=== PATIENT | male | born 1985 | race Two or more races ===

== ENCOUNTER 2021-09-17 07:32 | Emergency (ER) | payer BC, SELFPAY ==
[2021-09-17 07:35] VITALS: BP 124/85; PULSE 95; RESP 16; TEMP 36.7; O2SAT 97; BMI 25.0
[2021-09-17 07:46] LABS: MANUAL DIFF FLAG NO
[2021-09-17 07:51] LABS: Basophils Percent Auto 0.3 % (0-2); Eosinophils Percent Auto 0.3 % (0-4); Hematocrit 44.5 % (42.0-52.0); Imm Gran Abs Auto 0.01 X10*3/uL (0.00-0.03); Imm Gran Pct Auto 0.2 % (0.0-0.4); Lymphocytes Absolute Auto 0.3 X10*3/uL (1.2-4.9); Lymphocytes Percent Auto 4.5 % (20-40); Mean Corpuscular HGB Conc 33.7 g/dl (31.0-36.0); Mean Corpuscular Hemoglobin 28.4 pg (27.0-33.0); Mean Corpuscular Volume 84.3 fL (80.0-98.0); Mean Platelet Volume 9.3 fL (9.4-12.4); Monocytes Absolute Auto 0.4 X10*3/uL (0.1-1.2); Monocytes Percent Auto 6.1 % (2-11); Neutrophils Absolute Auto 5.4 x10*3/uL (2.0-8.3); Neutrophils Percent Auto 88.6 % (45-73); Platelet Count 185 X10*3/uL (160-400); Red Blood Count 5.28 X10*6/uL (4.60-5.80); White Blood Count 6.1 X10*3/uL (4.8-10.8)
[2021-09-17 07:56] VITALS: BP 120/84; PULSE 92; RESP 20; TEMP 36.7; O2SAT 97
[2021-09-17 08:00] LABS: COVID-19 Test Negative (Negative); IDNOW Serial# 16C4AD1C
[2021-09-17 08:02] LABS: Alanine Aminotransferase 17 U/L (0-40); Albumin Level 4.7 g/dL (3.5-5.0); Alkaline Phosphatase 51 U/L (39-117); Anion Gap 14 (12-20); Aspartate Amino Transferase 20 U/L (5-37); Bilirubin Total 2.8 mg/dL (0.0-1.0); Blood Urea Nitrogen 12 mg/dL (9-16); Calcium 9.7 mg/dL (8.4-10.2); Carbon Dioxide 24 mmol/L (22-29); Chloride 104 mmol/L (96-108); Estimated Glomerular Filt Rate > 60; Glucose Random 110 mg/dL (60-115); Potassium 4.2 mmol/L (3.3-5.1); Sodium 138 mmol/L (135-145); Total Protein 7.5 g/dL (6.5-8.0)
--- NOTE | 2021-09-17 08:07 | PC.NURSE ---
pt with abdominal cramping, had raw fish last night. History of abdominal pain and has not followed up with GI doctor. History of opiate abuse, did take 3 Percocets a couple of days ago ( not perscribed). pt on Suboxone daily, did not take today as he becomes nauseous while taking.
--- NOTE | 2021-09-17 08:52 | ED_ITS ---
HPI - Nausea/Vomiting/Diarrhea General Chief complaint: Nausea/Vomiting/Diarrhea Stated complaint: Fever/Nausea Time Seen by Provider: 09/17/21 08:52 Source: patient Mode of arrival: ambulatory History of Present Illness HPI Narrative: 36-year-old male with over a year of intermittent epigastric discomfort does smoke wheeze but has switched to edibles and states that his epigastric pain has come back proximally 2 days ago, he feels nauseous but denies fever, chills and states he has had some diarrhea but otherwise denies shortness of breath/chest pain/palpitations. Patient denies any family history of IBD or stomach cancers. Related Data Previous Rx's Medication Instructions Recorded omeprazole 40 mg capsule,delayed 40 mg PO DAILY 30 Days #30 cap 09/17/21 release Allergies Allergy/AdvReac Type Severity Reaction Status Date / Time Unable to Assess Allergy Verified 09/17/21 09:05 Review of Systems Review of Systems: Pertinent positives and negatives as stated in HPI 10 point review of systems is otherwise negative. PMFSH Past Medical History Source: nursing notes reviewed Social History Social History Patient Tobacco Use Status: Never used Tobacco Substance Use Type: Opiates and Prescription Drugs Substance Use Frequency: Recent Binge Last Used Substance: Days (ago) Any prior treatment program specific to substance use: No Advance Directives: No Advance Directives Information Provided: Yes Physical Exam Vital Signs: Vital Signs: Last Vital Signs Temp 98.0 F 09/17/21 07:56 Pulse 92 09/17/21 07:56 Resp 20 09/17/21 07:56 BP 120/84 09/17/21 07:56 Pulse Ox 97 09/17/21 07:56 BMI result Body Mass Index 25.0 VITAL SIGNS: Reviewed. GENERAL: Well developed, well nourished, in no acute distress. HEAD: Normocephalic/atraumatic EYES: PERRLA, EOMI EARS: Ext canals without abnormality OROPHARYNX: no oral lesions noted, posterior pharynx clear LUNGS: Normal breath sounds. No adventitious sounds or accessory muscle use. SpO2<97> CARDIOVASCULAR: Regular rate and rhythm without noted murmurs ABDOMEN: Soft, epigastric discomfort,, non-distended with bowel sounds. MUSCULOSKELETAL: No tenderness, deformities, or effusions noted on gross in spection. EXTREMITIES: No cyanosis, clubbing or edema. SKIN: Inspection of the skin reveals no rashes NEUROLOGIC: Alert and oriented x 4. Strength and sensation to light touch were grossly intact x 4. Course Course Course Narrative: 36-year-old male with history and clinical presentation consistent with likely dyspepsia or possible reaction with THC in the gummies and we that he has been smoking. I have reviewed all investigations and there are no acute findings to better explain patient's presentation. Patient is not febrile and is otherwise hemodynamically stable. Patient received it GI cocktail and will be discharged home in stable condition with remaining course of 30 days of omeprazole instructions follow-up with his primary care provider for possible referral to see GI. MDM - Nausea/Vomiting/Diarrhea Lab Data Result diagrams: 09/17/21 07:41 09/17/21 07:41 Labs: Lab Results 09/17/21 09/17/21 09/17/21 Range/Units 07:40 07:41 07:41 WBC 6.1 (4.8-10.8) X10*3/uL RBC 5.28 (4.60-5.80) X10*6/uL Hgb 15.0 (14.0-18.0) g/dl Hct 44.5 (42.0-52.0) % MCV 84.3 (80.0-98.0) fL MCH 28.4 (27.0-33.0) pg MCHC 33.7 (31.0-36.0) g/dl RDW 12.0 (11.0-16.0) % Plt Count 185 (160-400) X10*3/uL MPV 9.3 L (9.4-12.4) fL Immature Gran % (Auto) 0.2 (0.0-0.4) % Neut % (Auto) 88.6 H (45-73) % Lymph % (Auto) 4.5 L (20-40) % [place] % (Auto) 6.1 (2-11) % Eos % (Auto) 0.3 (0-4) % Baso % (Auto) 0.3 (0-2) % Lymph # (Auto) 0.3 L (1.2-4.9) X10*3/uL [place] # (Auto) 0.4 (0.1-1.2) X10*3/uL Eos # (Auto) 0.0 (0.0-0.4) X10*3/uL Baso # (Auto) 0.0 (0.0-0.2) X10*3/uL Abs Immat Gran (auto) 0.01 (0.00-0.03) X10*3/uL Absolute Neuts (auto) 5.4 (2.0-8.3) x10*3/uL Absolute Nucleated RBC 0.000 (0.0-0.012) X10*3/uL Nucleated RBC % (auto) 0.0 (0.0-0.2) /100WBC Sodium 138 (135-145) mmol/L Potassium 4.2 (3.3-5.1) mmol/L Chloride 104 (96-108) mmol/L Carbon Dioxide 24 (22-29) mmol/L Anion Gap 14 (12-20) BUN 12 (9-16) mg/dL Creatinine 1.01 (0.5-1.4) mg/dL Estim Creat Clear Calc 112.0 Estimated GFR > 60 Random Glucose 110 (60-115) mg/dL Calcium 9.7 (8.4-10.2) mg/dL Total Bilirubin 2.8 H (0.0-1.0) mg/dL AST 20 (5-37) U/L ALT 17 (0-40) U/L Alkaline Phosphatase 51 (39-117) U/L Total Protein 7.5 (6.5-8.0) g/dL Albumin 4.7 (3.5-5.0) g/dL Lipase 20 (8-78) U/L COVID-19 ([facility]AMON) Negative (Negative) COVID-19 Clin Com See Note Discharge Plan Discharge Clinical Impression: Dyspepsia, Gastroesophageal reflux disease Patient Disposition: Home, Self-Care Instructions: Diet for Stomach Ulcers and Gastritis (ED), Gastroesophageal Reflux Disease (ED), Indigestion (ED) Additional Instructions: 1. Take medication you have been prescribed as directed. 2. Follow-up with your primary care provider and discuss possible referral to GI. Return to the ER for worsening symptoms. Prescriptions: New omeprazole 40 mg capsule,delayed release(DR/EC) 40 mg PO DAILY 30 Days Qty: 30 0RF Referrals: Lorna Valdez PA [Primary Care Provider] -
[2021-09-17 09:30] LABS: Lipase 20 U/L (8-78)
[2021-09-17] MEDS: Lidocaine HCl Viscous 2 % 15 ML SOLUTION 10 ML MUCOUS MEM (09:50)
[2021-09-17] MEDS: Ondansetron ODT 4 MG TAB.RAPDIS TRANSLINGU (09:50)
== END 2021-09-17 10:02 | disposition home or self-care (01) ==
PROVIDERS: Emergency Provider Student in an Organized Health Care Education/Training Program; PCP Physician Assistant
DX: R10.13 Epigastric pain (principal); K21.9 Gastro-esophageal reflux disease without esophagitis; F12.90 Cannabis use, unspecified, uncomplicated; Z20.822 Contact with and (suspected) exposure to COVID-19
CPT/HCPCS: 36415; 80053; 83690; 85025; 87635; 99283; 99284

== ENCOUNTER 2021-12-27 12:27 | Day surgery (SDC) | payer OTHER, SELFPAY ==
[2021-12-27 12:41] VITALS: BMI 25.0
--- NOTE | 2021-12-27 12:48 | HO.ANESPROP2 ---
HPI - Anesthesia Eval Consult details Narrative: 36yo male patient for EGD PMFSH Active Problems Active Problems: Opioid dependence. In addiction program. Took percocet and suboxone today Past Medical History Narrative: H/o Right hand surgery Family History Family history of problems with anesthesia: No Surgical History Surgical History (Updated 12/27/21 @ 13:01 by Amberly Wasserman MD) S/P bilateral inguinal herniorrhaphy History of Problems with Anesthesia: No Social History Social History Patient Tobacco Use Status: Never used Tobacco Use of substances other than those prescribed or required for medical reasons: Yes Substance Use Type: Opiates and Prescription Drugs Have you been hit, kicked, punched, or otherwise hurt by someone within the past year? If so, by whom?: No Are you DNR?: No Advance Directives: No Advance Directives Information Provided: Yes Meds Allergies Allergy/AdvReac Type Severity Reaction Status Date / Time Unable to Assess Allergy Verified 09/17/21 09:05 Exam Exam Date and Time: December 27, 2021 1248 Height,Weight and Vital Signs: Height 6 ft Weight 83.915 kg Vital Signs Temp Pulse Resp BP Pulse Ox O2 Del Method 12/27/21 12:51 98.6 F 72 18 134/88 97 Room Air Airway Mallampati Class: I TM Dist: >3cm Neck ROM: Full Heart: RRR Lungs: CTAB Assessment and Plan Assessment Anesthesia Assessment: Anesthesia Plan Discussed and Chart Reviewed Final Anesthetic Review Family History of Problems with Anesthesia: No History of Problems with Anesthesia: No NPO: Yes ASA Class: II Final Preanesthetic Review: No Changes in Pt Med Stat, Meds/Allgs Chart Reviewed, Consent Obtained/Reviewed and Anes Risks/Benef Reviewed Patient Risk: Low Procedure Risk: Low Assessment/Block/Sedation in SS: Assess/Block/Sedation-SS Anesthetic Plan Anesthetic Plan: MAC: Disposition: Standard PACU
[2021-12-27 12:51] VITALS: BP 134/88; PULSE 72; RESP 18; TEMP 37; O2SAT 97
[2021-12-27] MEDS: Lactated Ringers 1,000 ML 100 ML IVCONT (13:05)
[2021-12-27 13:38] VITALS: BP 98/48; PULSE 63; RESP 16; TEMP 37; O2SAT 100
--- NOTE | 2021-12-27 13:40 | P.BOP_ITS ---
Brief Operative Note Date of Service: 12/27/21 Pre-op diagnosis: Abdominal pain, GERD Post-op diagnosis: other (R/O Celiac idsease, R/O Gastritis/H.pylori, GERD) Procedure: EGD with biopsies Surgeon: Agnelito Rock Anesthesia: MAC Was an Phonograph Needle Tip Maker used for this Procedure?: No Estimated blood loss (mL): 2.0 Pathology: other (A. Descending duodenum B. Gastric antrum C. EG Junction at 39cm) Condition: stable Disposition: PACU
[2021-12-27 13:53] VITALS: BP 105/62; PULSE 78; RESP 18; O2SAT 100
[2021-12-27 14:08] VITALS: BP 104/57; PULSE 67; RESP 18; O2SAT 100
[2021-12-27 14:23] VITALS: BP 113/72; PULSE 61; RESP 18; TEMP 36.8; O2SAT 100
--- NOTE | 2021-12-27 23:13 | OP_ITS ---
12/27/2021 SURGEON: Angelito Rock MD INDICATIONS: The patient presents for evaluation of abdominal pain, reflux, diarrhea, and weight loss. Full consent has been obtained from him for this, including risks of bleeding and perforation. PREOPERATIVE DIAGNOSIS: POSTOPERATIVE DIAGNOSIS: PROCEDURE PERFORMED: Esophagogastroduodenoscopy with biopsies. ESTIMATED BLOOD LOSS: COMPLICATIONS: ANESTHESIA: Monitored anesthesia care. ASSISTANTS: SPECIMENS: PREOPERATIVE DIAGNOSES: Abdominal pain, diarrhea, weight loss. POSTOPERATIVE DIAGNOSES: Abdominal pain, diarrhea, weight loss, rule out celiac disease, rule out gastritis and/or Helicobacter pylori, gastroesophageal reflux. DESCRIPTION OF PROCEDURE: The patient was placed in the left lateral decubitus position. The Olympus video gastroscope was passed in the posterior oropharynx and upper esophagus under direct vision. The scope was passed slowly to the distal esophagus. The gastroesophageal junction appeared at 39 cm. There was some very minimal irregularity but no esophagitis nor Otoole's mucosa. The scope entered into the stomach. There was no appreciable hiatal hernia. The scope was advanced to the pylorus and the duodenum was cannulated to the descending portion. The duodenum including the bulb appeared normal without mass or ulceration. Biopsies were obtained of the 2nd and 3rd portions of duodenum. The scope was withdrawn back to the stomach. The gastric antrum and body appeared normal with good peristalsis. Biopsies were obtained from the gastric antrum. The scope was retroflexed visualizing the proximal stomach carefully, which appeared normal, without any sign of mass or ulceration. The scope was straightened and withdrawn back to the esophagus. Biopsies were obtained at the gastroesophageal junction at 39 cm. Proximal to this, the esophageal mucosa appeared normal. The scope was withdrawn from the patient. He tolerated the procedure well and was returned to the recovery area in stable condition. IMPRESSION: 1. Rule out celiac disease. 2. Rule out gastritis and/or H pylori. 3. Gastroesophageal reflux. PLAN: The results of the biopsies will be checked. He was recently given prescriptions for omeprazole and dicyclomine. He was advised to continue omeprazole daily to see if that gives him any symptomatic relief of his upper GI complaints. He was advised to begin dicyclomine on a p.r.n. basis. He was advised to see me in several months for a followup visit as well. He has not had a colonoscopy, but that could be done in the future if he develops any increasing lower GI complaints. This has been discussed with his fiancee. MD DEYSI Ogden/EZRA / [phone] [id number]
== END 2021-12-27 15:12 | disposition home or self-care (01) ==
PROVIDERS: PCP Physician Assistant; Visit Provider Internal Medicine
PROC: 0DJ08ZZ Inspection of Upper Intestinal Tract, Via Natural or Artificial Opening Endoscopic (ICD-10-PCS; CPT 43235; principal; 2021-12-27 13:50)
DX: R10.13 Epigastric pain (principal); R63.4 Abnormal weight loss; K21.9 Gastro-esophageal reflux disease without esophagitis; R19.7 Diarrhea, unspecified; F11.20 Opioid dependence, uncomplicated
CPT/HCPCS: 43239; 88305; 88342

== ENCOUNTER 2023-08-05 09:18 | Emergency (ER) | payer OTHER, SELFPAY ==
--- NOTE | 2023-08-05 | ECG_ITS ---
Test Reason : CP Blood Pressure : / mmHG Vent. Rate : 074 BPM Atrial Rate : 074 BPM P-R Int : 128 ms QRS Dur : 098 ms QT Int : 354 ms P-R-T Axes : 060 058 033 degrees QTc Int : 392 ms Normal sinus rhythm Normal ECG No previous ECGs available Referred By: Generic ED Physician Electronically Signed By:CELINA HOPKINS
--- NOTE | ~2023-08-05 | XR_ITS ---
EXAMINATION: XR CHEST CLINICAL INFORMATION: Cough COMPARISON: None available. TECHNIQUE: 2 views of the chest were obtained. FINDINGS: No significant abnormality is noted involving the heart, lungs, mediastinum, bony thorax or soft tissues. XR/XR chest 2V IMPRESSION: Unremarkable examination.
[2023-08-05 09:34] VITALS: BP 133/88; PULSE 73; RESP 18; TEMP 36.5; O2SAT 98; BMI 25.1
[2023-08-05 09:35] LABS: MANUAL DIFF FLAG NO
--- NOTE | 2023-08-05 09:46 | ED.GENADULT ---
HPI - General Adult General Chief complaint: Upper Respiratory Symptoms Stated complaint: Chest Pain Time Seen by Provider: 08/05/23 09:45 Source: patient and family Mode of arrival: ambulatory Limitations: no limitations History of Present Illness HPI narrative: This is a 38-year-old male no known medical history works in construction presenting to the emergency department fatigue, malaise, myalgias, productive cough of yellow/green sputum with associated chest discomfort with coughing, chills times a week. Patient reports he also had a sore throat last week however now it is much improved. Reports he has been taking multiple [id number] medicines with little to no relief including Mucinex and Zyrtec. He reports he just recently against started working in construction he has not sure if this is contributing to his symptoms. Patient is here with his significant other who had similar symptoms which have now resolved. Patient reports that his symptoms are worse at night. He reports chest pains only present when he coughs and he claims that he has a very strong productive cough. He also has a at home. Patient denies nausea, vomiting, abdominal pain, diarrhea, headache, vision changes, dizziness, weakness, shortness of breath. Related Data Previous Rx's ?Medication ?Instructions ?Recorded omeprazole 40 mg capsule,delayed 40 mg PO DAILY 30 days #30 caps 09/17/21 release ondansetron 4 mg disintegrating 4 mg PO Q8H PRN nausea and 09/17/21 tablet vomiting #7 tabs albuterol sulfate 90 mcg/actuation 2 inh inhalation Q4-6H PRN 08/05/23 breath activated powder inhaler shortness of breath or wheezing #1 ea doxycycline hyclate 100 mg capsule 100 mg PO BID 10 days #20 caps 08/05/23 prednisone 20 mg tablet 40 mg (2 x 20 mg) PO DAILY 5 days 08/05/23 #10 tabs Allergies Allergy/AdvReac Type Severity Reaction Status Date / Time morphine Allergy Rash Verified 08/05/23 09:38 Review of Systems Review of Systems: Yes all other systems are reviewed and are negative PMFSH Past Medical History Attestation statement: The following information was validated with the patient. Source: old records reviewed and nursing notes reviewed Surgical History (Updated 12/27/21 @ 13:01 by Amberly Wasserman MD) S/P bilateral inguinal herniorrhaphy Social History Social History Patient Tobacco Use Status: Never used Tobacco Smoked in Last 30 Days: No Substance Use Type: Marijuana Advance Directives: No Physical Exam ED Vital Signs: Vital Signs - 24 hr 08/05/23 09:34 08/05/23 10:12 Temperature 97.7 F 97.7 F Pulse Rate 73 73 Respiratory Rate 18 18 Blood Pressure 133/88 133/88 Pulse Oximetry 98 98 Oxygen Delivery Method Room Air Room Air BMI result Body Mass Index 25.1 vss Appearance: Alert.? Oriented X3.? No acute distress.? Head: Normocephalic, atraumatic, no step-offs or deformities Eyes: Pupils equal, round and reactive to light.? ENT: Pharynx normal.? Uvula midline. No abscess or exudate. Patient is speaking in full sentences controlling secretions well. No erythema, edema. Neck: Normal inspection.? Neck supple.? CVS: Normal heart rate and rhythm.? Pulses normal.? Respiratory: No respiratory distress.? Breath sounds normal.? Abdomen: Soft and nontender.? Skin: Skin warm and dry.? Normal skin color.? Normal skin turgor.? Extremities: No lower extremity edema.? No calf ttp. 5/5 strength to bilateral upper and lower extremities Neuro: Oriented X 3.? No motor deficit.? No sensory deficit. CN 2-12 intact Course Reevaluation(s) Reevaluation #1: CBC unremarkable. Chemistry with no acute findings requiring intervention. Patient does have a chronically elevated total bilirubin. Will have him follow-up with PCP for this.. Viral testing pending. X-ray pending Time: 10:00 Reevaluation #2: Troponin negative, EKG nonischemic. Chest x-ray unremarkable. Viral test and strep test still pending. Medical Decision Making Medical Decision Making [facility] Narrative: [id number] 38 year old male presents w/ concerns of fatigue, malaise, sore throat, congestion, cough w/ a/c chest discomfort and chills X 1 week PE benign History and physical exam concerning for viral illness with possible viral pharyngitis or strep throat. No signs of retropharyngeal abscess, peritonsillar abscess, epiglottitis, acute threat to airway. Unlikely pneumonia, PE, ACS, dissection or acute respiratory distress. Other differentials include sinusitis. Plan nursing ordered labs, imaging. Viral testing ordered. Differential Diagnosis Differential Diagnoses: The differential diagnosis associated with the presentation includes Admission/Observation Consideration of admission/observation: Escalation of care including admission/observation considered Unlikely Lab Data MDM Lab Attestation statement: I reviewed the patient's lab results. 08/05/23 09:31 08/05/23 09:31 Labs: Lab Results 08/05/23 08/05/23 08/05/23 Range/Units 09:31 09:51 09:53 WBC 5.7 (4.8-10.8) X10*3/uL RBC 4.79 (4.60-5.80) X10*6/uL Hgb 13.7 L (14.0-18.0) g/dl Hct 40.7 L (42.0-52.0) % MCV 85.0 (80.0-98.0) fL MCH 28.6 (27.0-33.0) pg MCHC 33.7 (31.0-36.0) g/dl RDW 12.4 (11.0-16.0) % Plt Count 173 (160-400) X10*3/uL MPV 9.3 L (9.4-12.4) fL Immature Gran % (Auto) 0.2 (0.0-0.4) % Neut % (Auto) 71.0 (45-73) % Lymph % (Auto) 19.2 L (20-40) % [place] % (Auto) 6.8 (2-11) % Eos % (Auto) 2.1 (0-4) % Baso % (Auto) 0.7 (0-2) % Lymph # (Auto) 1.1 L (1.2-4.9) X10*3/uL [place] # (Auto) 0.4 (0.1-1.2) X10*3/uL Eos # (Auto) 0.1 (0.0-0.4) X10*3/uL Baso # (Auto) 0.0 (0.0-0.2) X10*3/uL Abs Immat Gran (auto) 0.01 (0.00-0.03) X10*3/uL Absolute Neuts (auto) 4.1 (2.0-8.3) x10*3/uL Absolute Nucleated RBC 0.000 (0.0-0.012) X10*3/uL Nucleated RBC % (auto) 0.0 (0.0-0.2) /100WBC Sodium 144 (135-145) mmol/L Potassium 4.0 (3.3-5.1) mmol/L Chloride 106 (96-108) mmol/L Carbon Dioxide 31 H (22-29) mmol/L Anion Gap 11 L (12-20) BUN 12 (9-16) mg/dL Creatinine 0.81 (0.5-1.4) mg/dL Estim Creat Clear Calc 141.1 Estimated GFR > 60 Random Glucose 100 (60-115) mg/dL Calcium 9.6 (8.4-10.2) mg/dL Total Bilirubin 1.8 H (0.0-1.0) mg/dL AST 26 (5-37) U/L ALT 23 (0-40) U/L Alkaline Phosphatase 41 (39-117) U/L Troponin I High Sens < 2.7 (<3.5-35.0) ng/L Total Protein 7.6 (6.5-8.0) g/dL Albumin 4.8 (3.5-5.0) g/dL Influenza Type A (PCR) NEGATIVE (Negative) Influenza Type B (PCR) NEGATIVE (Negative) RSV RNA Qual (PCR) NEGATIVE (Negative) SARS-CoV-2 RNA (RT-PCR) NEGATIVE (Negative) S. pyogenes GrpA MERY Negative (Negative) Independent Interpretation I performed an independent interpretation of an: EKG (Vent. Rate : 074 BPM Atrial Rate : 074 BPM P-R Int : 128 ms QRS Dur : 098 ms QT Int : 354 ms P-R-T Axes : 060 058 033 degrees QTc Int : 392 ms Normal sinus rhythm Normal ECG No previous ECGs available) and Plain X-Ray Radiology Impression Discussion of test interpretation with radiology: I have reviewed the radiologist's reading. External Record Review External record reviewed: Inpatient record, Office record, Outpatient record, Prior outpatient labs, Prior outpatient radiology, Primary care record and Outside ED record Critical Care Time Critical Care Time Critical Care Time: No Discharge Plan Discharge Clinical Impression: Bronchitis, Hyperbilirubinemia Patient Disposition: Home, Self-Care Instructions: Upper Respiratory Infection (ED), Acute Bronchitis (ED) Additional Instructions: Take your medications as prescribed. If you were prescribed antibiotics today, it is important that you take your medication to their entirety, do not skip any doses, do not finish them early. Follow-up with your primary care provider this week. Return to the emergency department with new or worsening symptoms. Such as fevers, chills, chest pain, shortness of breath, nausea, vomiting, dizziness, headache, vision changes, lethargy In case of emergency call 911 Your bilirubin was 1.8, previously it was 2.8, however this is still elevated. Please follow-up with your PCP for this. Prescriptions: New doxycycline hyclate 100 mg capsule 100 mg PO BID 10 Days Qty: 20 0RF albuterol sulfate 90 mcg/actuation aerosol powdr breath activated 2 inh inhalation Q4-6H PRN (Reason: shortness of breath or wheezing) Qty: 1 0RF prednisone 20 mg tablet 40 mg PO DAILY 5 Days Qty: 10 0RF No Action omeprazole 40 mg capsule,delayed release(DR/EC) 40 mg PO DAILY 30 Days Qty: 30 0RF ondansetron 4 mg tablet,disintegrating 4 mg PO Q8H PRN (Reason: nausea and vomiting) Qty: 7 0RF Referrals: Physician,Unknown J [Physician] - 2 days Stand Alone Forms: Work/School Release Interventions: ED Discharge Assessment Last Done: 08/05/23 10:12 Discharge Date/Time: 08/05/23 10:12 Print Language: Monegasque
[2023-08-05 09:49] LABS: Basophils Percent Auto 0.7 % (0-2); Eosinophils Absolute Auto 0.1 X10*3/uL (0.0-0.4); Eosinophils Percent Auto 2.1 % (0-4); Hematocrit 40.7 % (42.0-52.0); Hemoglobin 13.7 g/dl (14.0-18.0); Imm Gran Abs Auto 0.01 X10*3/uL (0.00-0.03); Imm Gran Pct Auto 0.2 % (0.0-0.4); Lymphocytes Absolute Auto 1.1 X10*3/uL (1.2-4.9); Lymphocytes Percent Auto 19.2 % (20-40); Mean Corpuscular HGB Conc 33.7 g/dl (31.0-36.0); Mean Corpuscular Hemoglobin 28.6 pg (27.0-33.0); Mean Platelet Volume 9.3 fL (9.4-12.4); Monocytes Absolute Auto 0.4 X10*3/uL (0.1-1.2); Monocytes Percent Auto 6.8 % (2-11); Neutrophils Absolute Auto 4.1 x10*3/uL (2.0-8.3); Platelet Count 173 X10*3/uL (160-400); Red Blood Count 4.79 X10*6/uL (4.60-5.80); Red Cell Distribution Width 12.4 % (11.0-16.0); White Blood Count 5.7 X10*3/uL (4.8-10.8)
[2023-08-05 10:03] LABS: Alanine Aminotransferase 23 U/L (0-40); Albumin Level 4.8 g/dL (3.5-5.0); Alkaline Phosphatase 41 U/L (39-117); Anion Gap 11 (12-20); Aspartate Amino Transferase 26 U/L (5-37); Bilirubin Total 1.8 mg/dL (0.0-1.0); Blood Urea Nitrogen 12 mg/dL (9-16); Calcium 9.6 mg/dL (8.4-10.2); Carbon Dioxide 31 mmol/L (22-29); Chloride 106 mmol/L (96-108); Creatinine Clr Calc Pharmacy 141.1; Estimated Glomerular Filt Rate > 60; Glucose Random 100 mg/dL (60-115); Sodium 144 mmol/L (135-145)
[2023-08-05 10:12] VITALS: BP 133/88; PULSE 73; RESP 18; TEMP 36.5; O2SAT 98
[2023-08-05 10:15] LABS: Troponin-I High Sensitivity < 2.7 ng/L (<3.5-35.0)
[2023-08-05 10:18] LABS: IDNOW Serial# 6674DD1D; Strep A Nucleic Acid Negative (Negative)
[2023-08-05 10:51] LABS: Influenza A PCR NEGATIVE (Negative); Influenza B PCR NEGATIVE (Negative); Resp Syncy Virus RNA Qual PCR NEGATIVE (Negative); SARS COV2 PCR INHOUSE NEGATIVE (Negative)
[2023-08-05 11:09] LABS: Total Protein 7.6 g/dL (6.5-8.0)
== END 2023-08-05 10:12 | disposition home or self-care (01) ==
PROVIDERS: Physician Assistant; Emergency Provider Emergency Medicine; PCP Physician Assistant
DX: J40 Bronchitis, not specified as acute or chronic (principal); E80.6 Other disorders of bilirubin metabolism; Z11.52 Encounter for screening for COVID-19; Z20.828 Contact with and (suspected) exposure to other viral communicable diseases
CPT/HCPCS: 0241U; 36415; 71046; 80053; 84484; 85025; 87651; 93005; 99283; 99284

== ENCOUNTER → 2023-08-05 09:24 | Outpatient (BNV) | payer OTHER, SELFPAY | PROVIDERS: Emergency Provider Emergency Medicine; PCP Physician Assistant; Visit Provider Internal Medicine | DX: R07.9 Chest pain, unspecified (principal) | CPT/HCPCS: 93010 ==